=== PATIENT | male | born 1985 | race African-American/Black ===

== ENCOUNTER 2017-06-21 14:43 | Emergency (ER) | payer SELFPAY ==
[~2017-06-21] VITALS: Ht 177.8 cm; Wt 300.0 kg
[2017-06-21] MEDS ORDERED: ASPI-986 PO (14:49)
[2017-06-21 16:26] LABS: HEMATOCRIT. 49.7 % (42.0-52.0); HEMOGLOBIN. 15.9 g/dL (14.0-18.0); MEAN CORPUSCULAR HEMOGLOBIN 28.9 pg (28.0-32.0); MEAN CORPUSCULAR VOLUME 90.3 fL (80.0-94.0); MEAN PLATELET VOLUME 10.6 fl (7.4-10.4); PLATELET 100 x1000/uL (130-400); RED BLOOD CELL COUNT 5.51 mill/uL (4.7-6.1)
[2017-06-21 16:38] LABS: CARBON DIOXIDE 34 mEq/L (21-32); CHLORIDE 98 mEq/L (98-107)
[2017-06-21 16:50] LABS: PLATELET ESTIMATE DECREASED
[2017-06-21] MEDS ORDERED: KETOROLAC 60MG/2ML VIAL IM ONE (17:45)
[2017-06-21 19:38] VITALS: BP 140/71
== END 2017-06-21 19:48 | disposition home or self-care (01) ==
LOC: ER 15:04
DX: J20.9 Acute bronchitis, unspecified (principal); Z88.8 Allergy status to other drugs, medicaments and biological substances
CPT/HCPCS: 36415; 71010; 80053; 83880; 85025; 99285; J1885